=== PATIENT | female | born 1945 | race Caucasian/White ===

== ENCOUNTER 2017-01-19 12:33 | Inpatient (IN) | payer MEDICARE, OTHER ==
--- NOTE | ~2017-01-19 | HP ---
Unit #: [id number] #: [id number] Patient: RICHARD HUNG [id number] [address] [address] [id number] E MR#: [id number] NAME: RICHARD HUNG ROOM: Age: 71 Sex: F Admission Date: 01/19/2017 : 1945 Attending Physician: Henrique Cervantes M.D. Primary Care Physician: Berry Morrow M.D. HISTORY AND PHYSICAL CHIEF COMPLAINT Shortness of breath. HISTORY OF PRESENT ILLNESS The patient is a 71-year-old female with past medical history of COPD, tobacco abuse, alcohol abuse, hypertension, hyperlipidemia, GERD, who presented to the emergency department for evaluation of the above. History is obtained from chart review and discussion with the ER staff, as well as from the patient's sister who was at the bedside. The patient is able to provide some history but it is somewhat limited due to her currently being on BiPAP. The patient has apparently had worsening shortness of breath for the past week. She has had an intermittently productive cough. She has not had fever. She has had intermittent chest tightness in association with cough. She has had decreased appetite. She has lost approximately 15 pounds over the past six months. There has been no vomiting or diarrhea. She is a daily drinker with the last drink being about two days ago. Upon arrival in the emergency department the patient's initial oxygen saturation was 74% on room air. Chest x-ray shows findings concerning for congestive heart failure with bilateral pleural effusions. Sodium is 118. She was given 125 mg of Solu-Medrol. She is being admitted to [facility] for evaluation and further treatment. PAST MEDICAL HISTORY 1. Admission to [facility] June 17-2011 for hyponatremia. Her sodium is 123 on admission. There was some concern for adrenal insufficiency. She was possibly started on steroid however she has not followed up with Endocrine and has not been taking any type of steroid. 2. COPD, not on home oxygen, not followed by a new client banking services clerk. 3. Hypertension. The patient has seen Dr Antony in the past. 4. Hyperlipidemia. 5. GERD. 6. Peripheral vascular disease, status post lower extremity stenting. PAST SURGICAL HISTORY 1. Cataract surgery. 2. Hysterectomy. 3. Tonsillectomy. 4. Lower extremity stenting. 5. Right ankle surgery. 6. Cardiac catheterization, most recently August 15, 2014 showed Unit #: [id number] #: [id number] Patient: RICHARD HUNG angiographically normal coronary arteries. Overall contractility of the left ventricle was noted to be normal. SOCIAL HISTORY The patient lives with her . She is a daily drinker and typically drinks at least eight 16 oz beers per day. Her last drink was two days ago. She continued to smoke a little less than a pack of cigarettes daily. She typically walks without assistance. Her code status is a Full Code. FAMILY HISTORY Family history is notable for both parents having hypertension and diabetes. Her mother also had a stroke. Her dad had colon cancer. ALLERGIES No known allergies. HOME MEDICATIONS 1. Aspirin 81 mg daily. 2. B-complex 150 mg daily. 3. Breo Ellipta 100/25 inhaled daily. 4. Tudorza 400 mcg b.i.d. 5. ProAir q.i.d. 6. Crestor 10 mg daily. 7. Amlodipine 10 mg daily. 8. Paroxetine 20 mg daily. 9. Xanax 0.5 mg daily. 10. Prilosec unknown dose. REVIEW OF SYSTEMS A complete review of systems is negative except as indicated in the HPI. DIAGNOSTIC STUDIES CARDIOVASCULAR: EKG shows normal sinus rhythm with a rate of 79 beats per minute. IMAGING: Chest x-ray shows underlying emphysematous change with new bilateral diffuse interstitial change that is mild to moderate with blunting of the costophrenic sulci suggesting effusions. LABORATORY: Comprehensive metabolic panel is notable for a sodium of 118, potassium is 3.2, chloride is 73, glucose 123, BUN and creatinine 7 and 0.5 respectively, AST and ALT are 47 and 43 respectively, alkaline phosphatase is 109, lactic acid is 0.7, INR is 1. Complete blood count notable for white blood cell count of 18.9. BNP is 241 Arterial blood gas shows pH of 7.343, pCO2 of 57.9, pO2 of 95.1 on BiPAP at 16/8 with an FIO2 of 50%. Troponin is less than 0.05. PHYSICAL EXAMINATION VITAL SIGNS: Temperature is 97.4. Pulse 79. Respirations 20. Blood pressure 154/53. Oxygen saturation initially 74% on room air. GENERAL: The patient is a female who is sleeping but wakes to physical stimuli. HEENT: The patient does have a periorbital abraded contusion. Mucous membranes are moist. She is currently on BiPAP. NECK: Neck is supple. Trachea is midline. CARDIOVASCULAR: Regular rate and rhythm. LUNGS: Lungs demonstrate inspiratory and expiratory wheezes. Unit #: [id number] #: [id number] Patient: RICHARD HUNG ABDOMEN: Abdomen is soft, nontender, with bowel sounds present all four quadrants. EXTREMITIES: The right lower extremity is grossly larger than the left. NEURO: The patient is oriented x3. She follows commands. PSYCH: The patient is somewhat anxious. SKIN: Skin of examined areas is warm and dry. ASSESSMENT The patient is a 71-year-old female with: 1. Acute respiratory failure, hypoxic. 2. Congestive heart failure. The patient had an echocardiogram November 09, 2009 that showed an ejection fraction of 60. Mild mitral regurgitation, mild tricuspid regurgitation were also noted. Family states that she has never been told that she has congestive heart failure. 3. Bilateral pleural effusions. 4. Chronic obstructive pulmonary disease exacerbation with continued tobacco abuse. The patient received a 125 mg of Solu-Medrol in the emergency department. 5. Hyponatremia. The patient's sodium has been as low as 123 on June 17, 2012. At that time there was some concern for adrenal insufficiency. She was seen in consultation by endocrinology. She has not followed up with them and is not on any type of steroid. I suspect that this may be secondary to beer potomania. 6. Hypokalemia. 7. Leukocytosis with no obvious source of infection. I have started the patient on Zosyn for possible aspiration pending further workup. 8. Hypertension. 9. Hyperlipidemia. 10. Gastroesophageal reflux disease. 11. Alcohol abuse with last drink being two days ago. PLAN 1. Admit to ICU. 2. N.p.o. except medications. 3. Check ABG. 4. Consult Dr. Bah regarding acute respiratory failure. 5. Blood culture x2, 6. Sputum culture and sensitivity. 7. Zosyn 3.375 g IV q.6 h. for possible aspiration pneumonia pending further workup. 8. Procalcitonin level. 9. DuoNeb q.4 h. 10. Solu-Medrol 80 mg IV q.12 h. 11. Strict Is and Os. 12. Daily weights. 13. Serial cardiac enzymes. 14. Lasix 40 mg IV daily with first dose now. 15. Two-D echo for further evaluation of LV function. 16. Urine sodium and osmolality. 17. Serum osmolality. 18. Hold paroxetine which may be contributing to hyponatremia. 19. Consult Dr. Mcmullen regarding hyponatremia. 20. Check magnesium level. 21. Potassium and magnesium protocol. 22. Repeat BMP later this evening to follow up hyponatremia. 23. Thiamine and multivitamin and folic acid. 24. CIWA scoring. Unit #: [id number] #: [id number] Patient: RICHARD HUNG 25. supplier development manager/social work consult regarding alcohol abuse. 26. Check CPK. 27. Right lower extremity venous Doppler for further evaluation of edema. 28. Protonix for GI prophylaxis since the patient will be on Solu-Medrol. 29. Repeat labs in the morning including magnesium. 30. Regarding code status, the patient is a full code. Thirty-seven minutes critical care time spent in the care of this patient (3:30 to 4:07 p.m.). Dictated by Chacha Cutler/jorge alberto TD: 01/19/2017 16:21 JOB #: [id number] HISTORY AND PHYSICAL Page 1 of 1 X Lexi Del Rosario MD HISTORY AND PHYSICAL
--- NOTE | ~2017-01-19 | CR72 ---
[facility] A Service of [facility] & [facility] RADIOLOGY TEXT RESULTS PATIENT: RICHARD HUNG LOCATION: [address] : [birth year] UNIT #: [id number] AGE: [address]: Lexi Del Rosario MD SEX: F ORDER DR: [id number] [facility] [address] [place], [place] [address] [id number] MR#: [id number] Acc #: [id number] NAME: RICHARD HUNG : 1945 SEX: F STUDY DATE/TIME: 01/19/2017 1334 UNIT: [facility] ROOM: STUDY DESCRIPTION: CR Chest Single View Portable Attending Physician: Henrique Cervantes M.D. Ordering Physician: Henrique Cervantes M.D. Primary Care Physician: Berry Morrow M.D. MEDICAL IMAGING REPORT This report is preliminary unless electronic signature is present EXAM Chest portable 04/04 22:17 1334 hours HISTORY 71-year-old woman complaining of shortness of air with chest tightness today. History of hypertension. COMPARISON 05/20/2016 FINDINGS Portable upright chest demonstrates stable heart size at the upper limits of normal. Mediastinal and hilar contours are normal. There is mild pulmonary venous distension and mild diffuse increase in interstitial markings since 05/20/2016 likely representing an element of edema. There is trace blunting of both costophrenic sulci also new likely small effusions. Findings suggest mild congestive heart failure. IMPRESSION There is underlying emphysematous change with new bilateral diffuse interstitial change which is [id number] and new blunting of both costophrenic sulci suggesting effusions. Findings are most suggestive of mild congestive heart failure. Dictated by... Nicki Montalvo M.D. THIS IS AN ELECTRONICALLY VERIFIED REPORT Nicki Montalvo M.D. at 01/19/2017 7:08 PM Chris TD: 01/19/2017 15:11 JOB #: [id number] [facility] A Service of [facility] & [facility] RADIOLOGY TEXT RESULTS PATIENT: RICHARD HUNG LOCATION: [address] : [birth year] UNIT #: [id number] AGE: [address]: Lexi Del Rosario MD SEX: F ORDER DR: MEDICAL IMAGING REPORT Page 1 of 1 COPY
--- NOTE | ~2017-01-19 | EKG ---
PATIENT: RICHARD HUNG UNIT #: [id number] Ventricular Rate: 86 BPM Atrial Rate: 86 BPM P-R Interval: 138 ms QRS Duration: 118 ms Q-T Interval: 424 ms QTC Calculation(Bezet): 507 ms P [place]: 77 degrees Calculated R [place]: 52 degrees Calculated T [place]: -96 degrees Diagnosis Line: Sinus rhythm with Premature supraventricular Diagnosis Line: complexes Diagnosis Line: Possible Left atrial enlargement Diagnosis Line: Right bundle branch block Diagnosis Line: Septal infarct (cited on or before 19-JAN-2017) Diagnosis Line: T wave abnormality, consider inferolateral Diagnosis Line: ischemia Diagnosis Line: Abnormal ECG Diagnosis Line: When compared with ECG of 19-JAN-2017 12:38, Diagnosis Line: (unconfirmed) Diagnosis Line: Premature supraventricular complexes are now Diagnosis Line: Present Diagnosis Line: Diagnosis Line: Confirmed by RIKKI GARAY MD ([id number]) on 01/22/2017 Diagnosis Line: 9:18:23 PM INTERPRETING MD: TANISHA GARCÍA
--- NOTE | ~2017-01-19 | CR72 ---
[facility] A Service of [facility] & [facility] RADIOLOGY TEXT RESULTS PATIENT: RICHARD HUNG LOCATION: [facility] 335-01 : [birth year] UNIT #: [id number] AGE: [address]: Megan Parra MD SEX: F ORDER DR: [id number] [facility] [address] [place] [address] [place], [place] [address] [id number] I MR#: [id number] Acc #: [id number] NAME: RICHARD HUNG. : 1945 SEX: F STUDY DATE/TIME: 01/20/2017 4:01 UNIT: [address] ROOM: [facility] STUDY DESCRIPTION: CR Chest Single View Portable Attending Physician: Megan Parra M.D. Ordering Physician: Rhonda Bah M.D. Primary Care Physician: Berry Morrow M.D. MEDICAL IMAGING REPORT This report is preliminary unless electronic signature is present EXAM Single view chest INDICATIONS Respiratory failure. FINDINGS Single portable AP view of the chest compared with 01/19/2017. Heart and mediastinal contours are unchanged. The background eczema. There is slight improvement in aeration of in the lung bases. No pneumothorax. IMPRESSION Slightly improved aeration of both lung bases. Dictated by... Jh Morgan M.D. THIS IS AN ELECTRONICALLY VERIFIED REPORT Jh Morgan M.D. at 01/20/2017 9:07 PM KYLE/lani TD: 01/20/2017 07:51 JOB #: [id number] MEDICAL IMAGING REPORT Page 1 of 1 COPY
--- NOTE | ~2017-01-19 | CO ---
Unit #: [id number] #: [id number] Patient: RICHARD HUNG [id number] [address] [place], [place] [address] [id number] I MR#: [id number] NAME: RICHARD HUNG ROOM: [facility] Age: 71 Sex: F Admission Date: 01/19/2017 : 1945 Attending Physician: Megan Parra M.D. Primary Care Physician: Berry Morrow M.D. CONSULTATION REPORT REASON FOR CONSULTATION Elevated troponin. HISTORY OF PRESENT ILLNESS This is a 71-year-old white female, who has been seen by our group in the past. 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 She had a cardiac catheterization also in 10/2009, which showed angiographically normal coronaries. She was admitted to this facility in 07/2014 and underwent cardiac catheterization and again was found to have angiographically normal coronaries. She had esophageal stricture found by EGD that was not dilated. The patient presents to the emergency room with a complaint of shortness of breath. She states she has been short of breath for quite some time. It began after the illness of her in August. She has a cough that is nonproductive. Shortness of breath occurs at rest and on exertion. She also has substernal chest tightness that she says was worse after she ate. She was unaware of fever, but was noted to have chills. In the emergency room, her chest x-ray was consistent with COPD. CT of the chest was noted for atelectasis and emphysema. She was admitted to the intensive care unit, where she was placed on BiPAP. She was hyponatremic with sodium level of 118, which is improving. Renal was following. Troponin on admission was normal, however, there was a peak at 0.52. Today's troponin returns to normal and less than 0.03. She had no acute EKG changes. PAST MEDICAL HISTORY 1. 2D echocardiogram on 11/09/2009 showed an ejection fraction equal to 60% with mild mitral regurgitation, mild tricuspid regurgitation. 2. Cardiac catheterization on 08/15/2014 shows normal coronaries. 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 3. Hypertension. 4. Hyperlipidemia. 5. GERD. 6. Peripheral vascular disease, status post lower extremity stent. 7. COPD. 8. Active smoker. 9. Daily EtOH use. PAST SURGICAL HISTORY 1. Hysterectomy. 2. Cataract extraction. 3. Right ankle surgery. Unit #: [id number] #: [id number] Patient: RICHARD HUNG 4. Tonsillectomy. SOCIAL HISTORY The patient is and lives with her . She smokes less than a half a pack of cigarettes a day. Admits to drinking at least daily. ALLERGIES No known drug allergies. HOME MEDICATIONS Albuterol HFA one inhalation q.i.d. p.r.n., Paxil 20 mg daily, Xanax 0.5 mg daily, amlodipine 10 mg daily, Breo Ellipta 100/25 mcg one inhalation daily, Crestor 10 mg daily, omeprazole 1 cap daily, aspirin 81 mg daily, vitamin B complex 150 mg daily, Tudorza Pressair 400 mcg b.i.d. REVIEW OF SYSTEMS CONSTITUTIONAL: Positive for weakness. Reports no weight gain or weight loss. HEENT: No headache, hearing or vision changes, difficulty with swallowing. Negative for dizziness. CARDIOVASCULAR: Has chest discomfort as described in the HPI. Denies palpitations. No paroxysmal nocturnal dyspnea or orthopnea. No syncope or near syncope. RESPIRATORY: Positive for dyspnea at rest and on exertion. Has a frequent nonproductive cough. No hemoptysis. GASTROINTESTINAL: No abdominal pain, nausea, or vomiting. No constipation or melena. EXTREMITIES: Negative for lower extremity edema. PHYSICAL EXAMINATION VITAL SIGNS: Blood pressure 145/51, heart rate 78, temperature 99.6, BMI 21. GENERAL: This is a pleasant 71-year-old white female, who is in no acute respiratory distress. NEUROLOGIC: She is awake, alert, and oriented. There are no focal weaknesses. NECK: Trachea is midline. No thyromegaly or lymphadenopathy. No jugular venous distention. HEART: S1, S2. Heart sounds are normal. No murmurs, rubs, or clicks. Regular rate and rhythm. LUNGS: With expiratory wheezes in both lungs with diminished breath sounds throughout. No rhonchi or rales. ABDOMEN: Soft and nontender with bowel sounds present. EXTREMITIES: With absent pedal pulses and no leg edema. SKIN: Warm and dry. DIAGNOSTIC STUDIES LABORATORY RESULTS: Glucose 130, BUN 7, creatinine 0.6, sodium 123, potassium 3.9. CK total 88, MB 3.3, MB index 3.8, troponin less than 0.52 to less than 0.03. BNP 238. White count 10.2, hemoglobin 14.1, hematocrit 40.6, platelet count 281. IMAGING STUDIES: CT of the chest shows very small left pleural effusion. Pdlv-fr-bbnbuukg atelectasis of the left posterior lower lobe and subsegmental atelectasis in the inferior lingula. Moderate bilateral emphysema. Ultrasound of bilateral lower extremities, negative for deep vein Unit #: [id number] #: [id number] Patient: RICHARD HUNG thrombosis. CARDIOVASCULAR STUDIES: EKG; normal sinus rhythm, rate of 79 beats per minute with incomplete right bundle-branch block, questionable old septal infarct. IMPRESSION 1. Acute chronic obstructive pulmonary disease exacerbation. 2. Hyponatremia. 3. Acute respiratory failure. 4. Elevated troponin. 5. Normal coronaries per cardiac catheterization in 2009 and 2013. 6. Hypertension. 7. Hyperlipidemia. 8. Gastroesophageal reflux disease. PLAN 1. Cardiology was consulted for elevated troponin. There is nonspecific elevation in troponin. There was a rapid decrease in troponin. EKG shows old nonspecific changes. 2. The patient's chest pain is most likely noncardiac in origin. She had normal coronaries per cardiac catheterization in 2009 and 2013. 3. We will repeat EKG and troponin in a.m. 4. Anticipate no new cardiac workup. 5. Echocardiogram is pending to evaluate left ventricular systolic function. 6. We will follow the patient with you. Thank you for allowing us to assist with this patient's care. Dictated by... Jessica Mcdaniels/timbo TD: 01/21/2017 05:46 JOB #: [id number] CONSULTATION REPORT Page 1 of 1 X Manjit More APRN X CONSULTATION REPORT
--- NOTE | ~2017-01-19 | CR63 ---
[facility] A Service of [facility] & [facility] RADIOLOGY TEXT RESULTS PATIENT: RICHARD HUNG LOCATION: [facility] 335- : [birth year] UNIT #: [id number] AGE: [address]: Megan Parra MD SEX: F ORDER DR: [id number] [facility] [address] [place], [place] [address] [id number] I MR#: [id number] Acc #: [id number] NAME: RICHARD HUNG : 1945 SEX: F STUDY DATE/TIME: 01/21/2017 7:34 UNIT: [address] ROOM: [facility] STUDY DESCRIPTION: CR Chest 2 View Attending Physician: Megan Parra M.D. Ordering Physician: Rhonda Bah M.D. Primary Care Physician: Berry Morrow M.D. MEDICAL IMAGING REPORT This report is preliminary unless electronic signature is present EXAM Chest PA and lateral 01/21/2017 HISTORY Shortness of breath, congestive heart failure, respiratory failure since 01/19/2017. Cough, COPD exacerbation. Smoking history. FINDINGS Two views of the chest were obtained. The lungs are clear. The heart and mediastinum have a normal contour, and the heart size is normal. No pleural effusions are seen. The lungs are hyperinflated, consistent with chronic obstructive pulmonary disease. There is no evidence of active disease. IMPRESSION Chronic obstructive pulmonary disease. No active disease. Dictated by... Eusebio Serrato M.D. THIS IS AN ELECTRONICALLY VERIFIED REPORT Eusebio Serrato M.D. at 01/22/2017 8:02 AM SE/yovanny TD: 01/21/2017 09:27 JOB #: [id number] MEDICAL IMAGING REPORT Page 1 of 1 COPY
--- NOTE | ~2017-01-19 | US85 ---
[facility] A Service of [facility] & [facility] RADIOLOGY TEXT RESULTS PATIENT: RICHARD HUNG LOCATION: [address] : [birth year] UNIT #: [id number] AGE: [address]: Lexi Del Rosario MD SEX: F ORDER DR: [id number] [facility] [address] [place], [place] [address] [id number] I MR#: [id number] Acc #: [id number] NAME: RICHARD HUNG. : 1945 SEX: F STUDY DATE/TIME: 01/19/2017 16:35 UNIT: [facility] ROOM: [facility] STUDY DESCRIPTION: LE Veins Unilat or Ltd Stdy Attending Physician: Lexi Del Rosario M.D. Ordering Physician: Lexi Del Rosario M.D. Primary Care Physician: Berry Morrow M.D. MEDICAL IMAGING REPORT This report is preliminary unless electronic signature is present EXAM Right lower extremity venous ultrasound HISTORY Right lower extremity swelling for 3 months, increased for 1 week. TECHNIQUE Venous ultrasound examination of the right lower extremity was performed using grayscale, spectral Doppler and color flow Doppler imaging. FINDINGS The examination is negative. There is no evidence of right lower extremity deep venous thrombus from the groin to the lower calf. Visualized greater saphenous vein is also patent. IMPRESSION Negative examination. No evidence of right lower extremity deep venous thrombosis. Dictated by... Kaushal Salazar M.D. THIS IS AN ELECTRONICALLY VERIFIED REPORT Kaushal Salazar M.D. at 01/19/2017 11:13 PM DFL/psc TD: 01/19/2017 21:28 JOB #: [id number] MEDICAL IMAGING REPORT Page 1 of 1 COPY
--- NOTE | ~2017-01-19 | TOC ---
Unit #: [id number] #: [id number] Patient: RICHARD HUNG [id number] [address] [address] [id number] I MR#: [id number] NAME: RICHARD HUNG. ROOM: 335 Age: 71 Sex: F Admission Date: 01/19/2017 : 1945 Attending Physician: Megan Parra M.D. Primary Care Physician: Berry Morrow M.D. TRANSFER OF CARE SUMMARY WORKING DIAGNOSES 1. Acute hypoxic respiratory failure. 2. Acute diastolic heart failure with an ejection fraction of 55-55%. 3. Bilateral pleural effusions, currently diuresing. 4. Acute COPD exacerbation. 5. Hypokalemia. 6. Hypernatremia. 7. Leukocytosis. 8. Essential hypertension. 9. Dyslipidemia. 10. GERD. 11. Alcoholism. 12. Detectable troponin. 13. E. coli UTI. PROCEDURES None. CONSULTANTS 1. Dr. Bah and Dr. Maddison Bloom of pulmonary. 2. Dr. Mcmullen and Dr. Burris of nephrology. 3. Dr. Antony and Dr. Nye of cardiology. DIAGNOSTIC STUDIES IMAGING: Chest x-ray on 01/19/17. Impression: Underlying emphysematous change with new bilateral diffuse interstitial change, which is fcxj-uu-onzgkimx, and new blunting of both costophrenic sulci suggesting effusions. Findings are most suggestive of mild congestive heart failure. Lower extremity ultrasound. Impression: Negative examination. No evidence of right lower extremity deep venous thrombosis. CT chest without contrast on 01/19/17. Impression: 1. Very small left pleural effusion. 2. Pgzf-ib-sgwrrwyi atelectasis in posterior left lower lobe and subsequent atelectasis or, less likely, infiltrate in the lower lingula. 3. Moderate bilateral emphysema, primarily in the upper lobes. 4. No adenopathy. 5. There fatty infiltration of the liver. Chest x-ray on 01/20/17 with impression of slightly improved aeration of both lungs. Unit #: [id number] #: [id number] Patient: RICHARD HUNG Chest x-ray, 01/21/17, impression: Chronic obstructive pulmonary disease. No active disease. LABORATORY: Today's labs include: BMP: Glucose 175, BUN 14, creatinine 0.8, sodium 135, potassium 3.8, chloride of 80, CO2 was 40, magnesium was 1.8. CBC with WBC of 13.5, RBC 14.43, hemoglobin 14.4, hematocrit 33, MCV is 98.4, MCH is 32.6, MCHC of 33.1, RDW 14.8, platelets 398, and MPV 8.6. Please note that patient's Legionella and Strep. pneumo on urine were both negative. MICROBIOLOGY: Blood culture: No growth. Urine culture with E. coli. Sputum: Normal respiratory jose present. 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 Patient has had symptoms of dyspnea for about a week and had had intermittent productive cough. She had not had any fever, but had intermittent chest pain and tightness associated with the cough. She also had had decreased appetite. She lost about 15 pounds in the past six months, but denied any symptoms of vomiting or diarrhea. She drinks alcohol daily, typically about eight 16-ounce beers. Her last drink was two days prior to her hospitalization. She continues to smoke. Upon arrival to the emergency department, patient's oxygen saturation was 74% on room air and she was then placed on the BiPAP. Chest x-ray was concerning for heart failure as well as bilateral pleural effusions. Sodium was 118. Please note that patient had had previous admission for hyponatremia. She was to follow up with an routing equipment tender, but had never done so. Patient was admitted and hospitalized for acute hypoxic respiratory failure as well as acute exacerbation of diastolic heart failure with associated bilateral pleural effusions. Patient was also treated for acute COPD exacerbation. Patient was seen in consultation by both cardiology and pulmonary. Patient initially had been admitted to ICU, but, since that time has been stable enough to be managed back on the medical floor. Patient is able to tolerate oxygenation through nasal cannula instead of being placed on BiPAP continuously. She is using BiPAP only at night. The patient is difficult to wean off of oxygen. Initially, her oxygen saturation would fluctuate between 99% and then down to 87%. Therefore, at this time, we will ask planner internship to look into [facility] for severe COPD, difficult to wean oxygen. Patient will likely need oxygen when she is medically and physically stable to be discharged home. In regards to heart failure, she currently is still being diuresed on IV Lasix. Routine cardiac enzymes have been noted to be detectable with the peak highest at 0.52. Cardiology had looked into this and states that patient had normal coronaries and (1) left heart cath in 2009 and 2013. Therefore, it was felt at this time that patient did not need any additional cardiac workup for ischemia and possibly this is troponin leakage from acute COPD exacerbation as well as acute CHF exacerbation. Cardiology has signed off at this time. Currently, patient is still receiving Zosyn and, when medically stable, she could be likely transitioned to Omnicef or whichever cephalosporin of choice for E. coli UTI. If accepted, will discharge patient to [facility] for her severe COPD. With regards to nephrology, they were consulted for patient's hyponatremia and felt that patient's hyponatremia is possibly due to likely underlying liver disease due to her severe alcoholism. At this time, her sodium has markedly improved. Today, sodium is 135 on fluid Unit #: [id number] #: [id number] Patient: RICHARD HUNG. At this time, we are waiting for placement to [facility] and if and when accepted, we will discharge patient there for continued both physical as well as pulmonary rehab. Please note that this dictation took 40 minutes and include patient education and coordinating care. Dictated by... Ashok Perez PA-C for Chacha Quispe/gayle TD: 01/22/2017 12:01 JOB #: [id number] TRANSFER OF CARE SUMMARY Page 1 of 1 X X TRANSFER OF CARE SUMMARY
--- NOTE | ~2017-01-19 | CO ---
Unit #: [id number] #: [id number] Patient: RICAHRD HUNG [id number] [address] [address] [id number] I MR#: [id number] NAME: RICHARD HUNG ROOM: 24519 Age: 71 Sex: F Admission Date: 01/19/2017 : 1945 Attending Physician: Lexi Del Rosario M.D. Primary Care Physician: Berry Morrow M.D. Consultation Date: 01/19/2017 CONSULTATION REPORT REASON FOR CONSULTATION Critical care management. CHIEF COMPLAINT Shortness of breath. HISTORY OF PRESENT ILLNESS The patient is a 71-year-old female with past medical history significant for COPD, hyponatremia, gastroesophageal reflux disease, alcohol abuse, dyslipidemia, hypertension, hemorrhoids, colon polyps and mild mitral regurgitation, who presents with the complaint of shortness of breath and was found to be in acute respiratory failure, currently on BiPAP. I am seeing the patient at bedside. Denies any headache, blurry vision, no chest pain. REVIEW OF SYSTEMS Positive for pallor, no edema, no cyanosis, no jaundice. PAST MEDICAL HISTORY As described above. PAST SURGICAL HISTORY 1. Stent placement. 2. . 3. Total abdominal hysterectomy and bilateral salpingo-oophorectomy. 4. Tonsillectomy and adenoid removal. HOME MEDICATIONS Includes: 1. Vytorin. 2. Aspirin. 3. Xanax. 4. Nexium. 5. Lisinopril. 6. Multivitamin. 7. Vitamin D3. 8. B-complex. 9. Flexeril. 10. Sonal. ALLERGIES No known drug allergies. SOCIAL HISTORY Unit #: [id number] #: [id number] Patient: RICHARD HUNG Daily drinker. Smokes one pack per day. PHYSICAL EXAMINATION VITAL SIGNS: Temperature 98, pulse 67, respirations 12, blood pressure 110/70. NEUROLOGIC: Awake, alert, oriented x3. LUNGS: Bilateral air entry, bilateral mild rhonchi. HEART: S1 plus S2. ABDOMEN: Nontender, soft. Bowel sounds positive. EXTREMITIES: No edema. SKIN: No rashes, no ulcers. LYMPHATIC: No lymphadenopathy. DIAGNOSTIC STUDIES LABORATORY: Reviewed. Sodium 118, potassium 3.2, chloride 73. White count 18, hemoglobin 14, hematocrit 41, platelet count 350. IMAGING: Reviewed. ASSESSMENT AND PLAN 1. Acute exacerbation of chronic obstructive pulmonary disease. 2. Horkw-xv-xgmceur hypoxic hypercapnic respiratory failure. 3. Acute bronchitis, rule out pneumonia. 4. Hyponatremia. 5. Alcohol abuse. 6. Critically ill patient. PLAN 1. Continue IV steroid, IV antibiotics, bronchodilator and BiPAP support. 2. Procalcitonin level. 3. Will check a BNP. 4. Will also do a noncontrast CT of the chest. 5. Patient will be closely monitored. 6. Please see orders for detailed plan. 7. Critical care time 65 minutes in direct critical care of this patient. Thank you very much for this consultation. Dictated by... Chacha Sutton/alvin TD: 01/19/2017 17:06 JOB #: [id number] Unit #: [id number] #: [id number] Patient: KYLAH HUNGEmmett Mercer CONSULTATION REPORT Page 1 of 1 X Rhonda Bah MD CONSULTATION REPORT
--- NOTE | ~2017-01-19 | CR63 ---
[facility] A Service of [facility] & [facility] RADIOLOGY TEXT RESULTS PATIENT: RICHARD HUNG LOCATION: [facility] 335-01 : [birth year] UNIT #: [id number] AGE: [address]: Megan Parra MD SEX: F ORDER DR: [id number] [facility] [address] [place], [place] [address] [id number] I MR#: [id number] Acc #: [id number] NAME: RICHARD HUNG : 1945 SEX: F STUDY DATE/TIME: 01/22/2017 13:04 UNIT: [address] ROOM: [facility] STUDY DESCRIPTION: CR Chest 2 View Attending Physician: Megan Parra M.D. Primary Care Physician: Berry Morrow M.D. MEDICAL IMAGING REPORT This report is preliminary unless electronic signature is present EXAM Chest 01/22/2017 HISTORY 71-year-old woman cough, congestion, short of breath 2 weeks duration. History of high blood pressure and smoking. COMPARISON Chest 01/21/2017 FINDINGS 2-view chest demonstrates normal stable cardiac size and configuration. Calcific plaquing is present in the arch. Bilateral lungs are hyperinflated with flattened diaphragms. I see no infiltrates and no lung mass. IMPRESSION Generalized pulmonary hyperinflation consistent with COPD. No acute chest finding Dictated by... Robles May M.D. THIS IS AN ELECTRONICALLY VERIFIED REPORT Robles May M.D. at 01/22/2017 3:23 PM YOVANY/caridad TD: 01/22/2017 14:50 JOB #: [id number] MEDICAL IMAGING REPORT Page 1 of 1 COPY
--- NOTE | ~2017-01-19 | CO ---
Unit #: [id number] #: [id number] Patient: RICHARD MEYER [id number] [address] [place], [place] [address] [id number] I MR#: [id number] NAME: RICHARD MEYER ROOM: [facility] Age: 71 Sex: F Admission Date: 01/19/2017 : 1945 Attending Physician: Megan Parra M.D. Primary Care Physician: Berry Morrow M.D. Consultation Date: 01/19/2017 CONSULTATION REPORT REASON FOR CONSULT Hyponatremia. HISTORY Thank you very much for asking us to see this patient in consultation. Ms. Meyer is a 71-year-old female who has a history of hyponatremia in the past who has seen Dr. Burris in our office, last in 01/2016, at which time the sodium was normal. It was felt that she potentially had it from alcohol abuse versus other. She also had history of hypercalcemia, and that improved after the vitamin D and calcium pills were stopped, and SPEP and UPEP were both negative then. She presented to the hospital. She continues to drink anywhere from 4-8 drinks a day. She quit drinking 2 days ago. She presented here with increasing shortness of breath, nonproductive cough, some mild abdominal discomfort, some questionable nausea, vomiting and diarrhea. She denies any significant chest pain. She does take about 3 or 4 Advil a week, she says. PAST MEDICAL HISTORY She has a history of esophageal stricture status post dilatation, history of gastroesophageal reflux disease, history of hyponatremia, history of hypercalcemia, history of depression, history of hypertension, history of anxiety, history of peripheral vascular disease status post lower extremity stents, history of hyperlipidemia. MEDICATIONS Her medicines at home include Crestor 10 mg a day, amlodipine 10 mg a day, paroxetine 20 mg a day, Xanax 0.5 mg a day, Prilosec daily, aspirin 81 mg a day, B complex a day, Breo Ellipta inhaler, several other inhalers. REVIEW OF SYSTEMS As mentioned in the HPI. Otherwise, negative. FAMILY HISTORY Positive for heart disease, diabetes, hypertension and colon cancer. ALLERGIES No known drug allergies. SOCIAL HISTORY She still smokes and drinks alcohol as mentioned above. PHYSICAL EXAMINATION GENERAL: She is alert. VITAL SIGNS: Temperature is 97.4, pulse 71-79, blood pressure Unit #: [id number] #: [id number] Patient: RICHARD MEYER 140-154/53-67. HEENT: She is normocephalic, atraumatic. Pupils are equal, round and reactive to light. Extraocular muscles are intact. Hearing appears to be normal. Her mouth is fairly clear, no erythema, no exudate. NECK: Supple. No adenopathy. CARDIAC: She has a regular rhythm without a rub. No S3 or S4. LUNGS: Her lungs have decreased breath sounds bilaterally. ABDOMEN: Bowel sounds positive. Nontender, soft. No masses felt. No hepatomegaly or organomegaly noted. EXTREMITIES: She has no edema, clubbing or cyanosis. : Deferred. NEUROLOGIC: Appears to be grossly intact to motor and sensory. SKIN: No acute rashes. DIAGNOSTIC STUDIES LABORATORY DATA: Sodium of 118, potassium 3.2, chloride 73, bicarb 29, BUN 7, creatinine 0.5, glucose 123, calcium 8.9. Liver function test mildly elevated. BNP is only 241. Lactic acid 0.7. Her hemoglobin is 14. Her white count is 18,900. Her platelet count is 350,000. Her albumin is 3.7. ASSESSMENT AND PLAN 1. Hyponatremia. This is a lady who has decreased sodium. Some question in the past related to alcohol versus even questionable some adrenal insufficiency (she was supposed to have seen Dr. Bansal at some point; unsure if it was done or not) versus other. Currently she is admitted with congestive heart failure versus pneumonia, although, by looking at her BNP and her physical exam and her history, would favor more pneumonia than heart failure. Certainly with the respiratory distress, I am a little afraid to give her a lot of fluids right now. I think we will just put her on a p.o. fluid restriction, recheck her sodium. If it does not improve or worsens, then we could consider giving her a little bit of normal saline. For now, I am just going to hold off and see what she does on her own. Agree with checking urine osmolarity, as well as random urine sodium. Will also check Legionella titer since patients with Legionella can also have an SIADH-type picture; depending on how her sodium does over the next 12 hours, depending on what further workup and treatment. Certainly she could also have an SIADH-type picture from her lungs versus beer potomania. Although albumin is normal now, I suspect once she gets hydrated a little bit, she will probably go down versus, again, her antidepressant versus other. Again, if her sodium does not start to improve, I will probably consider giving her a little bit of normal saline and recheck. Agree with stopping her antidepressant at this time, as well. She also has a low potassium and certainly fluid shifts of potassium can also contribute to hyponatremia, although certainly do not think this is the only etiology. 2. Shortness of breath. Pneumonia versus congestive heart failure versus other. 3. History of hypertension. Certainly would avoid HCTZ, diuretics at this time. 4. History of hyponatremia, as mentioned above. 5. History of hypercalcemia, normal. 6. History of depression. Dictated by... Unit #: [id number] #: [id number] Patient: RICHARD MEYER M.D. WAD/suellen TD: 01/20/2017 08:29 JOB #: [id number] CONSULTATION REPORT Page 1 of 1 X Krystyna Mcmullen MD X CONSULTATION REPORT
--- NOTE | ~2017-01-19 | DS ---
Unit #: [id number] #: [id number] Patient: RICHARD HUNG [id number] [address] [address] [id number] I MR#: [id number] NAME: RICHARD HUNG. ROOM: 335 Age: 71 Sex: F Admission Date: 01/19/2017 : 1945 Discharge Date: Attending Physician: Megan Parra M.D. Primary Care Physician: Berry Morrow M.D. DISCHARGE SUMMARY ADDENDUM Please see discharge/transfer of care summary dictated on 01/22/17 for details of hospital course. DISCHARGE MEDICATIONS Please note the following discharge medications. These will be continued at the rehab facility once rehab/placement is achieved. 1. DuoNeb aerosolized solution q.6 scheduled with q.2 p.r.n. 2. Prednisone 40 mg p.o. every day x5 days. 3. Tylenol 650 mg p.o. q.6 p.r.n. 4. Paxil 20 mg p.o. every day. 5. Nicotine transdermal 21 mg q.24. 6. Dulera 2 puffs b.i.d. 7. Norvasc 10 mg p.o. every day. 8. Lasix 40 mg p.o. every day. 9. Crestor 10 mg p.o. every day. 10. Multivitamin daily. 11. Aspirin 81 mg p.o. every day. 12. Protonix 40 mg p.o. every day. 13. Macrobid 100 mg p.o. b.i.d. until January 26, 2017. DISCHARGE CONDITION Stable. DISCHARGE DISPOSITION Rehab for ongoing care. PROGNOSIS Long-term guarded. Change of readmission high. Dictated by... Chacha Quispe/gayle TD: 01/23/2017 11:28 JOB #: [id number] Unit #: [id number] #: [id number] Patient: RICHARD HUNG DISCHARGE SUMMARY Page 1 of 1 X Megan Parra MD X DISCHARGE SUMMARY
--- NOTE | ~2017-01-19 | EKG ---
PATIENT: RICHARD HUNG UNIT #: [id number] Ventricular Rate: 80 BPM Atrial Rate: 80 BPM P-R Interval: 132 ms QRS Duration: 110 ms Q-T Interval: 440 ms QTC Calculation(Bezet): 507 ms P [place]: 83 degrees Calculated R [place]: 68 degrees Calculated T [place]: 33 degrees Diagnosis Line: Normal sinus rhythm Diagnosis Line: Right bundle branch block Diagnosis Line: Abnormal ECG Diagnosis Line: When compared with ECG of 20-JAN-2017 15:35, Diagnosis Line: (unconfirmed) Diagnosis Line: Premature supraventricular complexes are no longer Diagnosis Line: Present Diagnosis Line: Criteria for Septal infarct are no longer Present Diagnosis Line: ST no longer depressed in Anterolateral leads Diagnosis Line: T wave inversion no longer evident in Inferior Diagnosis Line: leads Diagnosis Line: T wave inversion less evident in Anterolateral Diagnosis Line: leads Diagnosis Line: Confirmed by MAI VELAZQUEZ MD ([id number]) on Diagnosis Line: 01/22/2017 1:15:45 PM INTERPRETING MD: ALDAIR
--- NOTE | ~2017-01-19 | CT57 ---
[facility] A Service of [facility] RADIOLOGY TEXT RESULTS PATIENT: RICHARD HUNG [facility] [place] [address] [id number] [birth year] UNIT #: [id number] AGE: [address]: Megan Parra MD SEX: F ORDER DR: [id number] [facility] [address] [place], [place] [address] [id number] I MR#: [id number] Acc #: [id number] NAME: RICHARD HUNG. : 1945 SEX: F STUDY DATE/TIME: 01/19/2017 19:52 UNIT: [facility] ROOM: [facility] STUDY DESCRIPTION: CT Chest Wo Cont Attending Physician: Lexi Del Rosario M.D. Ordering Physician: Rhonda Bha M.D. Primary Care Physician: Berry Morrow M.D. MEDICAL IMAGING REPORT This report is preliminary unless electronic signature is present EXAM CT chest without contrast HISTORY Shortness of air and chest tightness today. This CT exam was performed with one or more of the following radiation dose reduction techniques: automatic exposure control, adjustment of mA and/or kV according to patient size, and iterative reconstruction. FINDINGS CT chest without contrast demonstrates a very small left pleural effusion. Mild atelectasis in the posterior left lower lobe and subsegmental atelectasis or infiltrate in the inferior lingula. Additional minimal atelectasis in the posterior right lower lobe. Moderate emphysema primarily in the upper lobes. No adenopathy. Diffuse fatty infiltration of the liver. Normal caliber thoracic aorta. Partly calcified aortic valve. IMPRESSION 1. Very small left pleural effusion. 2. Nvrz-kx-vcyxtvmd atelectasis in the posterior left lower lobe and subsegmental atelectasis or less likely infiltrate in the inferior lingula. 3. Moderate bilateral emphysema primarily in the upper lobes. 4. No adenopathy. 5. Fatty infiltration of the liver. Dictated by... Kaushal Salazar M.D. [facility] A Service of [facility] RADIOLOGY TEXT RESULTS PATIENT: RICHARD HUNG LOCATION: [place] [address]- : [birth year] UNIT #: [id number] AGE: [address]: Megan Parra MD SEX: F ORDER DR: THIS IS AN ELECTRONICALLY VERIFIED REPORT Kaushal Salazar M.D. at 01/20/2017 3:14 PM BELA/art TD: 01/20/2017 00:06 JOB #: [id number] MEDICAL IMAGING REPORT Page 1 of 1 COPY
--- NOTE | ~2017-01-19 | EKG ---
PATIENT: RICHARD HUNG UNIT #: [id number] Ventricular Rate: 79 BPM Atrial Rate: 79 BPM P-R Interval: 134 ms QRS Duration: 116 ms Q-T Interval: 404 ms QTC Calculation(Bezet): 463 ms P [place]: 83 degrees Calculated R [place]: 84 degrees Calculated T [place]: 37 degrees Diagnosis Line: Normal sinus rhythm Diagnosis Line: Incomplete right bundle branch block Diagnosis Line: Septal infarct , age undetermined Diagnosis Line: ST and T wave abnormality, consider anterior Diagnosis Line: ischemia Diagnosis Line: Abnormal ECG Diagnosis Line: When compared with ECG of 15-AUG-2014 07:50, Diagnosis Line: Incomplete right bundle branch block has replaced Diagnosis Line: Right bundle branch block Diagnosis Line: Septal infarct is now Present Diagnosis Line: T wave inversion now evident in Anterior leads Diagnosis Line: Confirmed by ADEN KEATING MD ([id number]) on Diagnosis Line: 01/21/2017 8:45:08 AM INTERPRETING MD: RISHABH GARCÍA
[~2017-01-19 12:33] MED LIST: ADVAIR INH; ALBUTEROL17 GM INH; ALPRAZOLAM PO; ASPIRIN EC81 M1 PO; ASPIRIN PO; ASPIRINEC PO; BREO ELLIPTA I1 EACH IH; CAL-CITRATE PL1 EACH; CHANTIX PO; COMBIVENT INH14.7 GM INH; COMBIVENT MININEB INH; CRESTOR10 MG PO; DEXFOL PO; FISH OIL 1,0001 CAP PO; FLAX SEED OIL1000 M1; FLAX SEED OIL1000 M1 PO; FLAX SEED OIL1000 MG PO; IBUPROFEN PO; LISINOPRIL PO; LISINOPRIL10 MG PO; LOPRESSOR PO; MULTI-DAY VITAM1 TAB PO; MULTIVITAMINS W1 TAB PO; NEPHROCAPS CAPSU1 MG; NICOTINE TRANSD14 MG EXT; NORVASC PO; NORVASC10 MG PO; OMEPRAZOLE40 M1 PO; OMEPRAZOLE40 MG PO; PAROXETINE HCL20 MG PO; PAXIL PO; PROAIR HFA8.5 GM; PROAIR HFA8.5 GM INH; SYMBICORT INH; TUDORZA PRESS400 MCG IN; VIT B-12 PO; VITAL-D RX TABL1 TAB PO; VITAMIN B COMP1 EACH PO; VITAMIN D 4001 UDTAB; VITAMIN D2000 UNI1 PO; VITAMIN D50000 UNIT PO; VYTORIN 10-20 M1 TAB PO; VYTORIN 10/20 T1 TAB PO; ZESTRIL40 MG PO
[2017-01-19 13:53] LABS: BASOPHIL% 0.2 % (0-2.5); HEMATOCRIT 41.2 % (35.0-45.0); LYMPHOCYTE# 0.3 X10e3 (1.0-3.5); LYMPHOCYTE% 1.9 % (17.0-45.0); MEAN CELL VOLUME 97.2 FL (83-96); MEAN CORPUSCULAR HEMOGLOBIN 33.1 PG (28-34); MEAN CORPUSCULAR HGB CONC 34.1 g/dL (30-36); MEAN PLATELET VOLUME 10.2 FL (6.5-11.5); MONOCYTE# 1.4 X10e3 (0-1.0); MONOCYTE% 7.6 % (3.0-12.0); NEUTROPHIL% 90.3 % (40-75); PLATELET COUNT 350 X10e3 (140-420); RED BLOOD COUNT 4.24 X10e (3.90-5.30); RED CELL DISTRIBUTION WIDTH 15.1 % (11.0-15.5); WHITE BLOOD COUNT 18.9 X10e3 (4.0-10.5)
[2017-01-19 13:55] LABS: DIFF IND YES
[2017-01-19 13:58] LABS: POC - CKMB 8.6 ng/mL (0.0-7.9); POC - TROPONIN <0.05 ng/mL (<=0.05)
[2017-01-19 14:14] LABS: ARTERIAL BLD GAS O2 SATURATION 94.9 % (90.0-100.0); ARTERIAL BLOOD GAS CARBOXY HB 1.8 %sat (0.0-9.0); ARTERIAL BLOOD GAS HCO3 31.4 mmol/L; ARTERIAL BLOOD GAS MET HB 0.9 %sat (0.0-2.0); ARTERIAL BLOOD GAS PO2 95.1 mmHg (80.0-100); ARTERIAL BLOOD GAS pH 7.343 (7.350-7.450)
[2017-01-19 14:16] LABS: ARTERIAL BLOOD GAS ALLEN TEST NORMAL; ARTERIAL BLOOD GAS ART SITE LEFT RADIAL; ARTERIAL BLOOD GAS PCO2 57.9 mmHg (35.0-45.0); ARTERIAL DRAW? YES
[2017-01-19 14:17] LABS: ARTERIAL BLOOD GAS DELIVERY BIPAP 16/8
[2017-01-19 14:29] LABS: PROTHROMBIN TIME (PATIENT) 10.3 SECONDS (9.6-11.5)
[2017-01-19 14:43] LABS: PLATELET ESTIMATE NORMAL (NORMAL)
[2017-01-19 14:50] LABS: ALBUMIN SERUM 3.7 g/dL (3.5-5.0); BILIRUBIN, DIRECT 0.2 mg/dL (0.0-0.2); BILIRUBIN,INDIRECT 0.9 mg/dL (0.0-0.9); BILIRUBIN,TOTAL 1.1 mg/dL (0.2-2.0); CALCIUM SERUM 8.9 mg/dL (8.4-10.2); CREATININE SERUM 0.5 mg/dL (0.6-1.4); GLOM FILT RATE Estimated 98.8 mL/min (>60); POTASSIUM 3.2 mmol/L (3.5-5.1); PROTEIN TOTAL SERUM 7.5 g/dL (6.0-8.3)
[2017-01-19] MEDS ORDERED: CRESTOR10 MG PO (14:52)
[2017-01-19] MEDS ORDERED: AMLODIPINE BESY10 MG PO (14:52)
[2017-01-19] MEDS ORDERED: XANAX0.5 MG PO (14:53)
[2017-01-19] MEDS ORDERED: PAROXETINE HCL20 MG PO (14:53)
[2017-01-19] MEDS ORDERED: PRILOSEC (14:53)
[2017-01-19] MEDS ORDERED: BREO ELLIPTA 11 EACH INH (14:54)
[2017-01-19] MEDS ORDERED: SUPER B COMPLE150 MG PO (14:54)
[2017-01-19] MEDS ORDERED: ASPIRIN81 M2 PO (14:54)
[2017-01-19] MEDS ORDERED: TUDORZA PRESS400 MCG (14:55)
[2017-01-19] MEDS ORDERED: PROAIR HFA8.5 GM INH (14:55)
[2017-01-19 16:35] LABS: POC - CKMB 5.7 ng/mL (0.0-7.9); POC - TROPONIN <0.05 ng/mL (<=0.05)
[2017-01-19 16:56] LABS: MAGNESIUM 1.7 mg/dL (1.6-3.0)
[2017-01-19 17:03] LABS: ARTERIAL BLD GAS O2 SATURATION 96.8 % (90.0-100.0); ARTERIAL BLOOD GAS pH 7.377 (7.350-7.450)
[2017-01-19 17:05] LABS: ARTERIAL BLOOD GAS PCO2 52.8 mmHg (35.0-45.0); ARTERIAL DRAW? YES
[2017-01-19 17:06] LABS: ARTERIAL BLOOD GAS ALLEN TEST NORMAL; ARTERIAL BLOOD GAS ART SITE RIGHT RADIAL; ARTERIAL BLOOD GAS DELIVERY BIPAP
[2017-01-19 17:12] LABS: PROCALCITONIN 0.09 NG/ML
[2017-01-19 18:39] LABS: CALCIUM SERUM 9.2 mg/dL (8.4-10.2); CREATININE SERUM 0.5 mg/dL (0.6-1.4); GLOM FILT RATE Estimated 98.8 mL/min (>60); POTASSIUM 3.3 mmol/L (3.5-5.1)
[2017-01-19 18:41] LABS: URINE SOURCE CLEAN CATCH
[2017-01-19 18:49] LABS: URINE APPEARANCE CLEAR; URINE BILIRUBIN NEG (NEG); URINE BLOOD 1+ (NEG); URINE COLOR YELLOW; URINE GLUCOSE NEG (NEG); URINE KETONE 2+ (NEG); URINE LEUKOCYTE ESTERASE NEG (NEG); URINE NITRATE NEG (NEG); URINE PROTEIN 2+ (NEG); URINE SPECIFIC GRAVITY 1.008 (1.003-1.035); URINE UROBILINOGEN 0.2 MG/DL (NEG)
[2017-01-19 18:51] LABS: CULTURE INDICATED? YES; URBCS1 AUWI 0-2 /[HPF] (0-2); URINE BACTERIA AUWI 4+ (NEGATIVE); URINE SQUAMOUS EPITHELIAL CELL NONE SEEN /[HPF]
[2017-01-19 18:54] LABS: OSMOLALITY,URINE 265 mOsmo/kg (250-900)
[2017-01-19 18:55] LABS: SODIUM URINE RANDOM 58 mmol/L
[2017-01-19 23:09] LABS: CREATININE SERUM 0.7 mg/dL (0.6-1.4); GLOM FILT RATE Estimated 88.4 mL/min (>60)
[2017-01-19 23:13] LABS: CALCIUM SERUM 8.6 mg/dL (8.4-10.2)
[2017-01-19 23:23] LABS: %MB 19.3 % (0.0-4.0); MB 23.5 ng/ml
[2017-01-20 03:35] LABS: BASOPHIL% 0.3 % (0-2.5); DIFF IND NO; HEMATOCRIT 40.6 % (35.0-45.0); HEMOGLOBIN 14.1 gm/dL (12.0-16.0); LYMPHOCYTE# 0.3 X10e3 (1.0-3.5); MEAN CELL VOLUME 96.9 FL (83-96); MEAN CORPUSCULAR HEMOGLOBIN 33.7 PG (28-34); MEAN CORPUSCULAR HGB CONC 34.8 g/dL (30-36); MEAN PLATELET VOLUME 9.2 FL (6.5-11.5); MONOCYTE# 0.3 X10e3 (0-1.0); MONOCYTE% 2.9 % (3.0-12.0); NEUTROPHIL# 9.6 X10e3 (1.5-7.1); NEUTROPHIL% 93.8 % (40-75); PLATELET COUNT 281 X10e3 (140-420); RED BLOOD COUNT 4.19 X10e (3.90-5.30); RED CELL DISTRIBUTION WIDTH 14.7 % (11.0-15.5); WHITE BLOOD COUNT 10.2 X10e3 (4.0-10.5)
[2017-01-20 03:59] LABS: ALBUMIN SERUM 3.5 g/dL (3.5-5.0); BILIRUBIN,TOTAL 1.2 mg/dL (0.2-2.0); BUN/CREATININE RATIO 11.66; CALCIUM SERUM 8.7 mg/dL (8.4-10.2); CREATININE SERUM 0.6 mg/dL (0.6-1.4); MAGNESIUM 2.2 mg/dL (1.6-3.0); PHOSPHOROUS 2.6 mg/dL (2.5-4.6); POTASSIUM 3.9 mmol/L (3.5-5.1); PROTEIN TOTAL SERUM 7.2 g/dL (6.0-8.3)
[2017-01-20 04:01] LABS: ARTERIAL BLOOD GAS CARBOXY HB 0.5 %sat (0.0-9.0); ARTERIAL BLOOD GAS HCO3 37.9 mmol/L; ARTERIAL BLOOD GAS MET HB 0.7 %sat (0.0-2.0); ARTERIAL BLOOD GAS pH 7.436 (7.350-7.450)
[2017-01-20 04:06] LABS: ARTERIAL BLOOD GAS ALLEN TEST NORMAL; ARTERIAL BLOOD GAS ART SITE LEFT RADIAL; ARTERIAL BLOOD GAS DELIVERY BIPAP 18/4; ARTERIAL BLOOD GAS PCO2 56.4 mmHg (35.0-45.0); ARTERIAL DRAW? YES
[2017-01-20 04:55] LABS: %MB 3.8 % (0.0-4.0); MB 3.3 ng/ml
[2017-01-20 05:20] LABS: LEGIONELLA AG URINE NEG (NEG)
[2017-01-20 17:53] LABS: CALCIUM SERUM 8.6 mg/dL (8.4-10.2); CREATININE SERUM 0.8 mg/dL (0.6-1.4); GLOM FILT RATE Estimated 75.3 mL/min (>60)
[2017-01-20 17:57] LABS: POTASSIUM 2.4 mmol/L (3.5-5.1)
[2017-01-21 04:12] LABS: ARTERIAL BLD GAS O2 SATURATION 97.4 % (90.0-100.0); ARTERIAL BLOOD GAS CARBOXY HB 0.4 %sat (0.0-9.0); ARTERIAL BLOOD GAS HCO3 44.7 mmol/L; ARTERIAL BLOOD GAS MET HB 0.8 %sat (0.0-2.0); ARTERIAL BLOOD GAS pH 7.462 (7.350-7.450)
[2017-01-21 04:13] LABS: ARTERIAL BLOOD GAS ALLEN TEST NORMAL; ARTERIAL BLOOD GAS ART SITE RIGHT RADIAL; ARTERIAL BLOOD GAS DELIVERY BIPAP 18/4; ARTERIAL BLOOD GAS PCO2 62.6 mmHg (35.0-45.0); ARTERIAL DRAW? YES
[2017-01-21 07:58] LABS: BASOPHIL% 0.3 % (0-2.5); HEMATOCRIT 38.3 % (35.0-45.0); HEMOGLOBIN 12.7 gm/dL (12.0-16.0); LYMPHOCYTE# 0.1 X10e3 (1.0-3.5); LYMPHOCYTE% 1.3 % (17.0-45.0); MEAN CELL VOLUME 99.5 FL (83-96); MEAN CORPUSCULAR HEMOGLOBIN 33.1 PG (28-34); MEAN CORPUSCULAR HGB CONC 33.2 g/dL (30-36); MONOCYTE# 0.8 X10e3 (0-1.0); MONOCYTE% 7.3 % (3.0-12.0); NEUTROPHIL# 10.5 X10e3 (1.5-7.1); NEUTROPHIL% 91.1 % (40-75); PLATELET COUNT 325 X10e3 (140-420); RED BLOOD COUNT 3.85 X10e (3.90-5.30); WHITE BLOOD COUNT 11.5 X10e3 (4.0-10.5)
[2017-01-21 08:02] LABS: DIFF IND NO
[2017-01-21 08:23] LABS: ALBUMIN SERUM 3.3 g/dL (3.5-5.0); BILIRUBIN,TOTAL 0.6 mg/dL (0.2-2.0); BUN/CREATININE RATIO 16.66; CALCIUM SERUM 8.6 mg/dL (8.4-10.2); CREATININE SERUM 0.6 mg/dL (0.6-1.4); MAGNESIUM 1.7 mg/dL (1.6-3.0); PHOSPHOROUS 1.1 mg/dL (2.5-4.6); POTASSIUM 3.7 mmol/L (3.5-5.1); PROTEIN TOTAL SERUM 6.7 g/dL (6.0-8.3)
[2017-01-22 10:07] LABS: HEMATOCRIT 43.6 % (35.0-45.0); HEMOGLOBIN 14.4 gm/dL (12.0-16.0); MEAN CELL VOLUME 98.4 FL (83-96); MEAN CORPUSCULAR HEMOGLOBIN 32.6 PG (28-34); MEAN CORPUSCULAR HGB CONC 33.1 g/dL (30-36); MEAN PLATELET VOLUME 8.6 FL (6.5-11.5); RED BLOOD COUNT 4.43 X10e (3.90-5.30); RED CELL DISTRIBUTION WIDTH 14.8 % (11.0-15.5); WHITE BLOOD COUNT 13.5 X10e3 (4.0-10.5)
[2017-01-22 10:52] LABS: BUN/CREATININE RATIO 17.5; CALCIUM SERUM 9.2 mg/dL (8.4-10.2); CREATININE SERUM 0.8 mg/dL (0.6-1.4); GLOM FILT RATE Estimated 75.3 mL/min (>60); MAGNESIUM 1.8 mg/dL (1.6-3.0); PHOSPHOROUS 3.8 mg/dL (2.5-4.6); POTASSIUM 3.8 mmol/L (3.5-5.1)
[2017-01-23 07:38] LABS: BUN/CREATININE RATIO 23.33; CALCIUM SERUM 8.4 mg/dL (8.4-10.2); CREATININE SERUM 0.6 mg/dL (0.6-1.4); MAGNESIUM 2.6 mg/dL (1.6-3.0)
[2017-01-23 07:47] LABS: POTASSIUM 2.8 mmol/L (3.5-5.1)
== END 2017-01-23 14:20 | DRG 291 ==
LOC: CED 12:33 → CEDOF 15:55 → C3A PCU 15:55 → CEDOF 16:33 → CED 16:33 → CEDOF 18:38 → CICCU2 18:38 → C3A PCU 01-20 17:38
PROVIDERS: Emergency Medicine; Family Medicine; Internal Medicine; Internal Medicine Nephrology
PROC: B24BZZZ Ultrasonography of Heart with Aorta (ICD-10-PCS; principal; 2017-01-20)
DX: I11.0 Hypertensive heart disease with heart failure (principal); J96.21 Acute and chronic respiratory failure with hypoxia; J69.0 Pneumonitis due to inhalation of food and vomit; J96.22 Acute and chronic respiratory failure with hypercapnia; J44.0 Chronic obstructive pulmonary disease with (acute) lower respiratory infection; N39.0 Urinary tract infection, site not specified; E87.1 Hypo-osmolality and hyponatremia; I50.31 Acute diastolic (congestive) heart failure; F17.210 Nicotine dependence, cigarettes, uncomplicated; J20.9 Acute bronchitis, unspecified; B96.20 Unspecified Escherichia coli [E. coli] as the cause of diseases classified elsewhere; I25.2 Old myocardial infarction; R74.9 Abnormal serum enzyme level, unspecified; E87.6 Hypokalemia; E78.5 Hyperlipidemia, unspecified; D72.829 Elevated white blood cell count, unspecified; K21.9 Gastro-esophageal reflux disease without esophagitis; F10.10 Alcohol abuse, uncomplicated; Z90.710 Acquired absence of both cervix and uterus; Z79.82 Long term (current) use of aspirin; Z82.49 Family history of ischemic heart disease and other diseases of the circulatory system; Z82.3 Family history of stroke; Z80.0 Family history of malignant neoplasm of digestive organs
CPT/HCPCS: 36415; 36600; 71010; 71020; 71250; 80048; 80053; 80076; 81003; 82308; 82550; 82553; 82803; 83605; 83735; 83880; 83930; 83935; 84100; 84300; 84443; 84484; 85025; 85027; 85610; 87040; 87070; 87086; 87088; 87186; 87205; 87449; 87899; 93005; 93306; 93971; 94640; 94660; 94760; 96374; 97110; 97116; 97163; 97166; 97530; 97535; 99291; C9113; G8978-GP; G8979-GP; G8980-GP; G8987-GO; G8988-GO; J1940; J2543; J2920; J2930; J3475